=== PATIENT | female | born 1990 | race Caucasian/White ===

== ENCOUNTER 2019-10-28 20:12 | Emergency (ER) | payer BC, OTHER ==
[~2019-10-28] VITALS: Ht 180.3 cm; Wt 109.1 kg
[2019-10-28] MEDS ORDERED: PARA1IUD IU (20:17)
[2019-10-28] MEDS ORDERED: ADACEL/BOOSTRIX VACCINE (DIPHTH/PERTUSS/ACELL/TETANUS)0.5ML SYR (90715) IM ONE (22:15)
[2019-10-28] MEDS ORDERED: NEOSPORIN OINT 0.9 GM PKT (FLOOR STOCK) TOP ONE (22:15)
[2019-10-28 22:24] VITALS: BP 117/71
== END 2019-10-28 22:25 | disposition home or self-care (01) ==
LOC: M ED 20:12
DX: S61.318A Laceration without foreign body of other finger with damage to nail, initial encounter (principal); W27.4XXA Contact with kitchen utensil, initial encounter; Y92.000 Kitchen of unspecified non-institutional (private) residence as the place of occurrence of the external cause; Y93.G3 Activity, cooking and baking; Z88.0 Allergy status to penicillin; Z79.3 Long term (current) use of hormonal contraceptives

== ENCOUNTER 2020-07-28 09:07 | Outpatient (RCR) | payer OTHER ==
[~2020-07-28 09:07] MED LIST: PARA1IUD IU
== END 2020-08-03 ==
LOC: M PT 09:07
PROVIDERS: ATTEND Family Medicine
DX: R25.2 Cramp and spasm (principal)

== ENCOUNTER → 2021-11-01 | Outpatient (CLI) | payer OTHER | LOC: M PLAIMG 10:22 | PROVIDERS: ATTEND Orthopaedic Surgery | DX: M51.26 Other intervertebral disc displacement, lumbar region (principal) ==

== ENCOUNTER 2023-07-21 17:33 | Emergency (ER) | payer OTHER ==
[~2023-07-21] VITALS: Ht 152.4 cm; Wt 97.5 kg
[2023-07-21 18:06] LABS: BASO # 0.1 10^3/uL (0.0-0.2); BASO % 0.6 % (0.0-1.0); EOS # 0.1 10^3/uL (0.0-0.5); EOS % 0.8 % (0.0-3.0); HEMATOCRIT 42.6 % (36.0-47.0); HEMOGLOBIN 14.3 g/dl (12.0-15.5); LYMPH # 3.2 10^3/uL (1.5-5.0); LYMPH % 35.3 % (24.0-44.0); MEAN CORPUSCULAR HGB CONC 33.6 g/dl (32.0-36.5); MEAN CORPUSCULAR VOLUME 89.3 fl (80.0-96.0); MONO # 0.6 10^3/uL (0.0-0.8); NEUTROPHILS # 5.1 10^3/uL (1.5-8.5); NEUTROPHILS % 56.1 % (36.0-66.0); PLATELET COUNT, AUTOMATED 206 10^3/uL (150-450); RED BLOOD COUNT 4.77 10^6/uL (4.00-5.40)
[2023-07-21 18:09] LABS: APPEARANCE, URINE HAZY (CLEAR); BACTERIA, URINE AUTO NEGATIVE (NEGATIVE); BILIRUBIN, URINE AUTO NEGATIVE (NEGATIVE); BLOOD, URINE BLOOD NEGATIVE (NEGATIVE); COLOR, URINE YELLOW (YELLOW); GLUCOSE, URINE (UA) AUTO NEGATIVE (NEGATIVE); KETONE, URINE AUTO NEGATIVE (NEGATIVE); LEUKOCYTE ESTERASE, URINE AUTO TRACE (NEGATIVE); NITRITE, URINE AUTO NEGATIVE (NEGATIVE); PROTEIN, URINE AUTO NEGATIVE (NEGATIVE); RBC, URINE AUTO 0 /HPF (0-3); SPECIFIC GRAVITY URINE AUTO 1.004 (1.002-1.035); SQUAMOUS EPITHELIAL CELL UR AU 3 /HPF (0-6); UROBILINOGEN, URINE AUTO 0.2 mg/dL (0.0-2.0); WBC, URINE AUTO 2 /HPF (0-3)
[2023-07-21 18:34] LABS: ALBUMIN 3.7 G/DL (3.2-5.2); BILIRUBIN,DIRECT 0.2 MG/DL (<0.4); BILIRUBIN,TOTAL 0.7 MG/DL (0.3-1.2); TOTAL PROTEIN 7.1 G/DL (5.7-8.2)
[2023-07-21] MEDS ORDERED: ISOVUE-370 76% 100ML VIAL As Ordered ONE (18:47)
[2023-07-21 19:29] VITALS: BP 121/76; TEMP 97.9; O2SAT 99
== END 2023-07-21 19:44 | disposition home or self-care (01) ==
LOC: M ED 17:33
DX: K21.9 Gastro-esophageal reflux disease without esophagitis (principal); Z88.0 Allergy status to penicillin
CPT/HCPCS: 36415; 74177; 80047; 80076; 81001; 83690; 84702; 85025; 99284; Q9967

== ENCOUNTER → 2023-11-27 | Outpatient (CLI) | payer OTHER | LOC: M WHC 10:48 | PROVIDERS: ATTEND Nurse Practitioner Family | DX: N92.1 Excessive and frequent menstruation with irregular cycle (principal); F52.6 Dyspareunia not due to a substance or known physiological condition ==

== ENCOUNTER → 2024-01-17 | Outpatient (REF) | payer OTHER | LOC: M SFHCWAGY 15:23 | PROVIDERS: ATTEND Nurse Practitioner Family | DX: Z12.4 Encounter for screening for malignant neoplasm of cervix (principal) ==

== ENCOUNTER → 2025-03-25 | Outpatient (REF) | payer OTHER | LOC: M SFHCWAGY 10:54 | PROVIDERS: ATTEND Nurse Practitioner Family | DX: N73.9 Female pelvic inflammatory disease, unspecified (principal) ==